=== PATIENT | female | born 1995 | race Caucasian/White ===

== ENCOUNTER 2017-01-20 02:37 | Emergency (ER) | payer BC ==
[~2017-01-20] VITALS: Ht 160 cm; Wt 68.3 kg
[2017-01-20 02:50] VITALS: TEMP 36.7; Ht 160 cm; Wt 68.3 kg
[2017-01-20] MEDS ORDERED: OMEP40CA41 PO (03:26)
[2017-01-20 03:39] LABS: BASO % 0.5 %; BASO ABS # 0.03 K/uL (0-0.2); COMPLETE YES; HEMATOCRIT 39.1 % (37-47); IG% 0.2 %; LYMPH % 29.2 %; MEAN CELL VOLUME 86.7 fL (80-100); MEAN CORPUSCULAR HEMOGLOBIN 27.9 pg (25-34); MEAN CORPUSCULAR HGB CONC 32.2 g/dl (32-36); MEAN PLATELET VOLUME 9.1 fL (7.4-10.4); MONO % 8.1 %; PLATELET COUNT 307 K/uL (130-400); RED BLOOD COUNT 4.51 M/uL (4.2-5.4); WHITE BLOOD COUNT 5.83 K/uL (4.8-10.8)
[2017-01-20 03:41] LABS: BENZODIAZEPINE, URINE NEG (NEG); COCAINE,URINE NEG (NEG); PHENCYCLIDINE, URINE NEG (NEG)
[2017-01-20 04:00] LABS: BUN/CREATININE RATIO 12.8 (10-20); CALCIUM 9.1 mg/dl (8.5-10.1); CREATININE 0.83 mg/dl (0.60-1.20); POTASSIUM 3.4 mmol/L (3.5-5.1)
[2017-01-20 04:14] LABS: PREG INTERNAL NEGATIVE QC NEG CLEAR BACKGROUND; PREG INTERNAL POSITIVE QC POS CONTROL LINE
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
[2017-01-20 04:21] VITALS: BP 109/64; PULSE 78; O2SAT 98
[2017-02-01 16:24] LABS: 7-AMINOFLUNITRAZEPAM < 3 ng/mL; FLUNITRAZEPAM (ROHYPNOL) < 3 ng/mL; NORFLUNITRAZEPAM < 3 ng/mL
== END 2017-01-20 04:22 | disposition home or self-care (01) ==
LOC: C.EDB 02:39 → C.EDA 04:22
DX: F10.920 Alcohol use, unspecified with intoxication, uncomplicated (principal); Y90.5 Blood alcohol level of 100-119 mg/100 ml; K58.9 Irritable bowel syndrome, unspecified; Z79.899 Other long term (current) drug therapy